=== PATIENT | female | born 1930 | race Caucasian/White ===

== ENCOUNTER 2020-04-20 10:51 | Inpatient (IN) | payer MEDICARE, BC ==
[2020-04-20] MEDS ORDERED: Sodium Chloride 0.9% 10 ML Syringe FLUSH PRN (11:15)
[2020-04-20 11:54] LABS: PTT,PARTIAL THROMBOPLSTIN TIME 25.2 SEC (25.6-32.8)
[2020-04-20 12:01] LABS: CHLORIDE,CL 104 mmol/L (98-107); SODIUM,NA 143 mmol/L (136-145)
[2020-04-20 12:03] LABS: ANION GAP 11.3 mmol/L (10-20)
[2020-04-20] MEDS ORDERED: Sulfamethoxazole/Trimethoprim 800-160 MG Tab PO ONE (12:16)
[2020-04-20] MEDS ORDERED: Pantoprazole 40 MG Vial IVPUSH ONE (12:41)
--- NOTE | 2020-04-20 13:15 | EDM.PDOC ---
ED HPI GENERAL MEDICAL PROBLEM - General Stated Complaint: LOOSE STOOLS/RECTAL BLEEDING Time Seen by Provider: 04/20/20 10:52 Source of Information: Reports: Patient History Limitations: Reports: No Limitations - History of Present Illness INITIAL COMMENTS - FREE TEXT/NARRATIVE: Patient comes emergency department today with complaints of diarrhea loose stools as well as questionable blood in her stools as well. This patient noticed yesterday that she was having stools. They were maroon and reddish color. They continue today. She does not have much for abdominal pain just some pressure in the suprapubic region. No hematuria dysuria or urinary frequency. No chest pain no shortness of breath or difficulty breathing. No weakness dizziness lightheadedness. No palpitations. No syncope. No fever no chills. She does have a family member who colon cancer in the past. She has not had a colonoscopy in the last couple years that she was told she no longer needs one. She does have a history of diverticulosis as well as diverticulitis although this does not feel like her symptoms that she has had with this in the past. No Covid exposure no Covid symptoms. Lower Abdominal Pain Score (Numeric/FACES): 0 - Related Data Allergies Allergy/AdvReac Type Severity Reaction Status Date / Time atorvastatin calcium Allergy Other Verified 05/30/14 11:06 [From Lipitor] celecoxib [From Celebrex] Allergy Other Verified 05/30/14 11:06 carbidopa [From Sinemet] AdvReac Headache Verified 05/30/14 11:06 cephalexin monohydrate AdvReac Nausea and Verified 05/30/14 11:06 [From Keflex] Vomiting codeine AdvReac Nausea and Verified 05/30/14 11:06 Vomiting diltiazem HCl [From Cardizem] AdvReac Nausea and Verified 05/30/14 11:06 Vomiting doxazosin mesylate AdvReac Nausea and Verified 05/30/14 11:06 [From Cardura] Vomiting hydrochlorothiazide AdvReac Headache Verified 05/30/14 11:06 [From Dyazide] isosorbide AdvReac Headache Verified 05/30/14 11:06 levodopa [From Sinemet] AdvReac Headache Verified 05/30/14 11:06 nifedipine [From Procardia] AdvReac Headache Verified 05/30/14 11:06 terazosin HCl [From Hytrin] AdvReac Headache Verified 05/30/14 11:06 triamterene [From Dyazide] AdvReac Headache Verified 05/30/14 11:06 Home Meds: Home Meds Aspirin [Ecotrin] 325 mg PO DAILY 05/13/14 [History] Calcium Carbonate [Calcium] 1 tab PO DAILY 05/13/14 [History] ClonazePAM [KlonoPIN] 1 tab PO BEDTIME 05/13/14 [History] Fish Oil/[place]-3 Fatty Acids [Fish Oil 1,000 MG] 1,000 mg PO DAILY 05/13/14 [History] Furosemide [Lasix] 1 tab PO 0800 05/13/14 [History] Magnesium 250 mg PO DAILY 05/13/14 [History] Multivit,Calc,Mins/Iron/Folic [Thera-M] 1 tab PO DAILY 05/13/14 [History] Nitroglycerin [Nitrostat] 1 tab SL ASDIRECTED PRN 05/13/14 [History] Simvastatin [Zocor] 0.5 tab PO BEDTIME 05/13/14 [History] amLODIPine Besylate [Norvasc] 1 tab PO DAILY 05/13/14 [History] Carboxymethylcellulose Sodium [Refresh Tears] 1 drop EYEBOTH ASDIRECTED PRN 04/20/20 [History] Furosemide [Lasix] 0.5 tab PO 1200 04/20/20 [History] Polyvinyl Alcohol/Povidone/Pf [Refresh Classic Eye Drops] 1 drop EYEBOTH ASDIRECTED PRN 04/20/20 [History] lisinopriL [Lisinopril] 20 mg PO DAILY 04/20/20 [History] ED ROS GENERAL - Review of Systems Review Of Systems: Comprehensive ROS is negative, except as noted in HPI. ED EXAM, GI/ABD - Physical Exam Exam: See Below Text/Narrative:: This is a very happy pleasant interactive elderly female that appears in no acute distress and nontoxic-appearing. Exam Limited By: No Limitations General Appearance: Alert, WD/WN, No Apparent Distress Eyes: Bilateral: EOMI Ears: Normal External Exam Nose: Normal Inspection Throat/Mouth: Normal Inspection Head: Atraumatic, Normocephalic Neck: Normal Inspection, Supple, Non-Tender Respiratory/Chest: No Respiratory Distress, Lungs Clear, Normal Breath Sounds, Chest Non-Tender Cardiovascular: Normal Peripheral Pulses, Regular Rate, Rhythm GI/Abdominal Exam: Normal Bowel Sounds, Soft, Tender (She has some minor tenderness in the suprapubic region without guarding rebound. There is no peritoneal signs. No rigidity to the abdomen. No hernia.) Rectal (Female) Exam: Heme + Stool (She is grossly blood positive with maroon tarry like stools.), Hemorrhoids (There are a couple of small nonthrombosed external hemorrhoids.). No: Tenderness Back Exam: Normal Inspection, Full Range of Motion Extremities: Normal Inspection, Normal Range of Motion, Normal Capillary Refill Neurological: Alert, Oriented, Normal Cognition, No Motor/Sensory Deficits Psychiatric: Normal Affect, Normal Mood Skin Exam: Warm, Dry, Intact, Normal Color #1 Interpretation EKG Date: 04/20/20 Time: 11:43 Rhythm: NSR Rate (Beats/Min): 83 [place]: Normal P-Wave: Present QRS: Normal ST-T: Normal QT: Normal Course - Vital Signs Last Recorded V/S: Last Vital Signs Temp 97.4 F 04/22/20 06:00 Pulse 70 04/22/20 06:00 Resp 17 04/22/20 06:00 BP 110/49 L 04/22/20 07:46 Pulse Ox 95 04/22/20 06:00 - Orders/Labs/Meds Orders: Medication Orders Acetaminophen (Tylenol) 650 mg PO Q4H PRN PRN Reason: Pain Amlodipine Besylate (Norvasc) 2.5 mg PO DAILY [facility] Last Admin: 04/22/20 07:45 Dose: 2.5 mg Documented by: Admin: 04/21/20 08:14 Dose: 2.5 mg Documented by: Admin: 04/20/20 15:13 Dose: 2.5 mg Documented by: [email or web address] Artificial Tears (Genteal Mild To Moderate Ophth Soln) 0 ml EYEBOTH ASDIRECTED PRN PRN Reason: Dry Eyes Ceftriaxone Sodium (Rocephin) 1 gm IVPUSH DAILY [facility] Last Admin: 04/22/20 07:45 Dose: 1 gm Documented by: Admin: 04/21/20 08:12 Dose: 1 gm Documented by: ORLANDO Clonazepam (Klonopin) 1 mg PO BEDTIME [facility] Last Admin: 04/21/20 19:50 Dose: 1 mg Documented by: Admin: 04/20/20 21:15 Dose: 1 mg Documented by: VAMSI Metronidazole 500 mg/ Premix 100 mls @ 100 mls/hr IV Q8H [facility] Last Admin: 04/22/20 06:11 Dose: 100 mls/hr Documented by: Infusion: 04/21/20 23:02 Dose: 100 mls/hr Documented by: Admin: 04/21/20 22:02 Dose: 100 mls/hr Documented by: Infusion: 04/21/20 15:20 Dose: 100 mls/hr Documented by: Admin: 04/21/20 14:20 Dose: 100 mls/hr Documented by: Infusion: 04/21/20 07:09 Dose: 100 mls/hr Documented by: Admin: 04/21/20 06:09 Dose: 100 mls/hr Documented by: Infusion: 04/21/20 00:06 Dose: 100 mls/hr Documented by: Admin: 04/20/20 23:06 Dose: 100 mls/hr Documented by: Infusion: 04/20/20 16:12 Dose: 100 mls/hr Documented by: Admin: 04/20/20 15:12 Dose: 100 mls/hr Documented by: JOVITA Lisinopril (Prinivil) 20 mg PO DAILY [facility] Last Admin: 04/22/20 07:46 Dose: 20 mg Documented by: Admin: 04/21/20 08:14 Dose: 20 mg Documented by: Admin: 04/20/20 15:12 Dose: 20 mg Documented by: JOVITA Nitroglycerin (Nitrostat) 0.4 mg SL ASDIRECTED PRN PRN Reason: Chest Pain Omeprazole (Omeprazole) 20 mg PO BIDAC [facility] Last Admin: 04/22/20 06:11 Dose: 20 mg Documented by: Admin: 04/21/20 16:58 Dose: 20 mg Documented by: Admin: 04/21/20 11:29 Dose: 20 mg Documented by: ORLANDO Potassium Chloride (Klor-Con 10) 20 meq PO BIDMEALS [facility] Last Admin: 04/22/20 07:45 Dose: 20 meq Documented by: Admin: 04/21/20 17:53 Dose: 20 meq Documented by: Admin: 04/21/20 09:31 Dose: 20 meq Documented by: ORLANDO Simvastatin (Zocor) 40 mg PO BEDTIME [facility] Last Admin: 04/21/20 19:50 Dose: 40 mg Documented by: Admin: 04/20/20 21:16 Dose: 40 mg Documented by: VAMSI Sodium Chloride (Saline Flush) 10 ml FLUSH ASDIRECTED PRN PRN Reason: Keep Vein Open Labs: Laboratory Tests 04/20/20 04/20/20 04/20/20 Range/Units 11:05 11:15 11:21 WBC 14.0 H (4.0-10.0) x10^3/uL RBC 5.25 (4.00-5.50) x10^6/uL Hgb 16.0 (12.0-16.0) g/dL Hct 47.7 H (33.0-47.0) % MCV 90.9 (78.0-93.0) fL MCH 30.5 (26.0-32.0) pg MCHC 33.5 (32.0-36.0) g/dL RDW Coeff of [place] 12.5 (10.0-15.0) % Plt Count 244 (130-400) x10^3/uL Neut % (Auto) 72.6 (50.0-80.0) % Lymph % (Auto) 18.7 L (25.0-50.0) % [place] % (Auto) 8.4 (2.0-11.0) % Eos % (Auto) 0.2 (0.0-4.0) % Baso % (Auto) 0.1 L (0.2-1.2) % PT (9.5-12.3) SEC INR (2.0-3.5) APTT (25.6-32.8) SEC Sodium (136-145) mmol/L Potassium (3.5-5.1) mmol/L Chloride (98-107) mmol/L Carbon Dioxide (21-32) mmol/L Anion Gap (10-20) mmol/L BUN (7-18) mg/dL Creatinine (0.55-1.02) mg/dL Est Cr Clr Drug Dosing Estimated GFR (MDRD) Glucose (74-106) mg/dL Lactic Acid (0.4-2.0) mmol/L Calcium (8.5-10.1) mg/dL Corrected Calcium (8.5-10.1) mg/dL Total Bilirubin (0.2-1.0) mg/dL AST (15-37) U/L ALT (14-59) U/L Alkaline Phosphatase (46-116) U/L Troponin I (<=0.056) ng/mL C-Reactive Protein (<=0.9) mg/dL Total Protein (6.4-8.2) g/dL Albumin (3.4-5.0) g/dL Globulin Albumin/Globulin Ratio Amylase (25-115) U/L Lipase (73-393) U/L Urine Color Dark yellow H (YELLOW) Urine Appearance Cloudy H (CLEAR) Urine pH 5.5 (5.0-8.0) Ur Specific [place] 1.025 Urine Protein Negative (NEGATIVE) mg/dL Urine Glucose (UA) Negative (NEGATIVE) mg/dL Urine Ketones Trace H (NEGATIVE) mg/dL Urine Occult Blood Negative (NEGATIVE) Urine Nitrite Negative (NEGATIVE) Urine Bilirubin Negative (NEGATIVE) Urine Urobilinogen 0.2 (0.2) EU/dL Ur Leukocyte Esterase Moderate H (NEGATIVE) Urine RBC 5-10 H (NOT SEEN) /HPF Urine WBC 20-30 H (NOT SEEN) /HPF Ur Squamous Epith Cells Many H (NEGATIVE) /HPF Amorphous Sediment Few Urine Bacteria Few H (NEGATIVE) /HPF Urine Mucus Few H (NEGATIVE) /LPF SARS CoV-2 RNA Rapid SHELBY Negative (NEGATIVE) Blood Type Gel Antibody Screen 04/20/20 04/20/20 04/20/20 Range/Units 11:21 11:21 11:21 WBC (4.0-10.0) x10^3/uL RBC (4.00-5.50) x10^6/uL Hgb (12.0-16.0) g/dL Hct (33.0-47.0) % MCV (78.0-93.0) fL MCH (26.0-32.0) pg MCHC (32.0-36.0) g/dL RDW Coeff of [place] (10.0-15.0) % Plt Count (130-400) x10^3/uL Neut % (Auto) (50.0-80.0) % Lymph % (Auto) (25.0-50.0) % [place] % (Auto) (2.0-11.0) % Eos % (Auto) (0.0-4.0) % Baso % (Auto) (0.2-1.2) % PT 10.1 (9.5-12.3) SEC INR 0.9 L (2.0-3.5) APTT 25.2 L (25.6-32.8) SEC Sodium 143 (136-145) mmol/L Potassium 3.3 L (3.5-5.1) mmol/L Chloride 104 (98-107) mmol/L Carbon Dioxide 31 (21-32) mmol/L Anion Gap 11.3 (10-20) mmol/L BUN 9 (7-18) mg/dL Creatinine 1.0 (0.55-1.02) mg/dL Est Cr Clr Drug Dosing TNP Estimated GFR (MDRD) 52 Glucose 126 H (74-106) mg/dL Lactic Acid (0.4-2.0) mmol/L Calcium 9.5 (8.5-10.1) mg/dL Corrected Calcium 9.66 (8.5-10.1) mg/dL Total Bilirubin 0.7 (0.2-1.0) mg/dL AST 22 (15-37) U/L ALT 26 (14-59) U/L Alkaline Phosphatase 95 (46-116) U/L Troponin I < 0.017 (<=0.056) ng/mL C-Reactive Protein (<=0.9) mg/dL Total Protein 6.9 (6.4-8.2) g/dL Albumin 3.8 (3.4-5.0) g/dL Globulin 3.1 Albumin/Globulin Ratio 1.23 Amylase (25-115) U/L Lipase (73-393) U/L Urine Color (YELLOW) Urine Appearance (CLEAR) Urine pH (5.0-8.0) Ur Specific [place] Urine Protein (NEGATIVE) mg/dL Urine Glucose (UA) (NEGATIVE) mg/dL Urine Ketones (NEGATIVE) mg/dL Urine Occult Blood (NEGATIVE) Urine Nitrite (NEGATIVE) Urine Bilirubin (NEGATIVE) Urine Urobilinogen (0.2) EU/dL Ur Leukocyte Esterase (NEGATIVE) Urine RBC (NOT SEEN) /HPF Urine WBC (NOT SEEN) /HPF Ur Squamous Epith Cells (NEGATIVE) /HPF Amorphous Sediment Urine Bacteria (NEGATIVE) /HPF Urine Mucus (NEGATIVE) /LPF SARS CoV-2 RNA Rapid SHELBY (NEGATIVE) Blood Type A POSITIVE Gel Antibody Screen Negative 04/20/20 04/20/20 Range/Units 11:21 11:21 WBC (4.0-10.0) x10^3/uL RBC (4.00-5.50) x10^6/uL Hgb (12.0-16.0) g/dL Hct (33.0-47.0) % MCV (78.0-93.0) fL MCH (26.0-32.0) pg MCHC (32.0-36.0) g/dL RDW Coeff of [place] (10.0-15.0) % Plt Count (130-400) x10^3/uL Neut % (Auto) (50.0-80.0) % Lymph % (Auto) (25.0-50.0) % [place] % (Auto) (2.0-11.0) % Eos % (Auto) (0.0-4.0) % Baso % (Auto) (0.2-1.2) % PT (9.5-12.3) SEC INR (2.0-3.5) APTT (25.6-32.8) SEC Sodium (136-145) mmol/L Potassium (3.5-5.1) mmol/L Chloride (98-107) mmol/L Carbon Dioxide (21-32) mmol/L Anion Gap (10-20) mmol/L BUN (7-18) mg/dL Creatinine (0.55-1.02) mg/dL Est Cr Clr Drug Dosing Estimated GFR (MDRD) Glucose (74-106) mg/dL Lactic Acid 3.3 H* (0.4-2.0) mmol/L Calcium (8.5-10.1) mg/dL Corrected Calcium (8.5-10.1) mg/dL Total Bilirubin (0.2-1.0) mg/dL AST (15-37) U/L ALT (14-59) U/L Alkaline Phosphatase (46-116) U/L Troponin I (<=0.056) ng/mL C-Reactive Protein 2.3 H (<=0.9) mg/dL Total Protein (6.4-8.2) g/dL Albumin (3.4-5.0) g/dL Globulin Albumin/Globulin Ratio Amylase 27 (25-115) U/L Lipase 74 (73-393) U/L Urine Color (YELLOW) Urine Appearance (CLEAR) Urine pH (5.0-8.0) Ur Specific [place] Urine Protein (NEGATIVE) mg/dL Urine Glucose (UA) (NEGATIVE) mg/dL Urine Ketones (NEGATIVE) mg/dL Urine Occult Blood (NEGATIVE) Urine Nitrite (NEGATIVE) Urine Bilirubin (NEGATIVE) Urine Urobilinogen (0.2) EU/dL Ur Leukocyte Esterase (NEGATIVE) Urine RBC (NOT SEEN) /HPF Urine WBC (NOT SEEN) /HPF Ur Squamous Epith Cells (NEGATIVE) /HPF Amorphous Sediment Urine Bacteria (NEGATIVE) /HPF Urine Mucus (NEGATIVE) /LPF SARS CoV-2 RNA Rapid [place] (NEGATIVE) Blood Type Gel Antibody Screen Meds: Medications Generic Name Dose Route Start Last Admin Trade Name Freq PRN Reason Stop Dose Admin Acetaminophen 650 mg 04/20/20 15:00 Tylenol PO Q4H PRN Pain Amlodipine Besylate 2.5 mg 04/20/20 14:30 04/22/20 07:45 Norvasc PO 2.5 mg DAILY [facility] Administration Artificial Tears 0 ml 04/20/20 14:18 Genteal Mild To Moderate Ophth Soln EYEBOTH ASDIRECTED PRN Dry Eyes Ceftriaxone Sodium 1 gm 04/21/20 08:00 04/22/20 07:45 Rocephin IVPUSH 1 gm DAILY RAIA Administration Clonazepam 1 mg 04/20/20 20:00 04/21/20 19:50 Klonopin PO 1 mg BEDTIME ARIA Administration Metronidazole 500 mg/ Premix 100 mls @ 100 mls/hr 04/20/20 14:30 04/22/20 06:11 IV 100 mls/hr Q8H [facility] Administration Lisinopril 20 mg 04/20/20 14:30 04/22/20 07:46 Prinivil PO 20 mg DAILY [facility] Administration Nitroglycerin 0.4 mg 12/06/20 14:18 Nitrostat SL ASDIRECTED PRN Chest Pain Omeprazole 20 mg 04/21/20 11:00 04/22/20 06:11 Omeprazole PO 20 mg BIDAC ARIA Administration Potassium Chloride 20 meq 04/21/20 08:35 04/22/20 07:45 Klor-Con 10 PO 20 meq BIDMEALS ARIA Administration Simvastatin 40 mg 04/20/20 20:00 04/21/20 19:50 Zocor PO 40 mg BEDTIME [facility] Administration Sodium Chloride 10 ml 04/20/20 11:15 Saline Flush FLUSH ASDIRECTED PRN Keep Vein Open Discontinued Medications Generic Name Dose Route Start Last Admin Trade Name Freq PRN Reason Stop Dose Admin Sodium Chloride 1,000 mls @ 100 mls/hr 04/20/20 14:15 04/21/20 13:43 Normal Saline IV 100 mls/hr ASDIRECTED ARIA Administration Potassium Chloride 20 meq/ 50 mls @ 25 mls/hr 04/20/20 14:23 04/20/20 15:12 Premix IV 04/20/20 16:22 25 mls/hr Q2H [facility] Administration Magnesium Sulfate 2 gm in 50 mls @ 25 mls/hr 04/21/20 16:23 04/21/20 16:35 Magnesium Sulfate In Water Premix IV 04/21/20 18:22 25 mls/hr ONETIME ONE Administration Iopamidol 100 ml 04/20/20 18:46 04/20/20 18:50 Isovue-300 (61%) IVPUSH 04/20/20 18:47 100 ml ONETIME ONE Administration Non-Formulary Medication 1 drop 04/20/20 14:18 Polyvinyl Alcohol/Povidone/Pf [Refresh Classic Eye Drops] EYEBOTH ASDIRECTED PRN Dry Eyes Pantoprazole Sodium 80 mg 04/20/20 12:41 04/20/20 13:00 Protonix Iv IVPUSH 04/20/20 12:42 80 mg ONETIME ONE Administration Pantoprazole Sodium 40 mg 04/21/20 08:00 04/21/20 08:12 Protonix Iv IVPUSH 40 mg Q12H [facility] Administration Trimethoprim/Sulfamethoxazole 1 tab 04/20/20 12:16 04/20/20 12:39 Septra Ds PO 04/20/20 12:17 1 tab ONETIME ONE Administration - Re-Assessments/Exams Free Text/Narrative Re-Assessment/Exam: An IV was established labs were drawn. EKG without any ST elevation or depression when reviewed extemporaneously by myself. The patient's rectal exam is very positive for maroon-colored stool. Patient was given 80 mg of Protonix IV push. Covid screen is negative. WBCs 14.0, hemoglobin 16.0, platelets 244. PT 10.1, INR 0.9, PTT 25.2. Potassium 3.3 sodium normal creatinine 1.0 with a BUN of 9. Lactic acid 3.3. Liver enzymes are normal. Troponin less than 0.017. C-reactive protein 2.3. Urinalysis trace ketones, moderate leukocyte esterase 5-10 RBCs with 20-30 WBCs. Urine culture pending. Patient was given a dose of Bactrim in the emergency department. Although this patient's hemoglobin is quite stable and she is hemodynamically stable. With her advanced age and the rather predominant amount of blood in her stool I think that care management and close following an inpatient treatment is advised at this time. I called and spoke with Ugo Kebede the [employer] control and recovery combat rescue for the hospital. HPI ER COURSE findings and concerns were relayed to him. His questions were answered and he accepted the patient in admission at this time for treatment here in [place]. I discussed the plan of care with the patient. She is comfortable with this plan and her questions are answered. Departure - Departure Time of Disposition: 12:30 Disposition: Admitted As Inpatient 66 Clinical Impression: Lower GI bleed UTI (urinary tract infection) Qualifiers: Urinary tract infection type: site unspecified Hematuria presence: without hematuria Qualified Code(s): N39.0 - Urinary tract infection, site not specified - Discharge Information
[2020-04-20] MEDS ORDERED: Non-Formulary Medication 1 Each (Polyvinyl Alcohol/Povidone/Pf [Refresh Classic Eye Drops] EYEBOTH PRN (14:18)
[2020-04-20] MEDS ORDERED: Nitroglycerin 0.4 MG Tab.SL SL PRN (14:18)
[2020-04-20] MEDS ORDERED: Hypromellose 0.3% Ophth Soln 15 ML Bottle EYEBOTH PRN (14:18)
[2020-04-20] MEDS ORDERED: Potassium Chloride Riders 20 MEQ in Premix Bag 1 BAG IV SCH (14:23)
[2020-04-20] MEDS ORDERED: Acetaminophen 325 MG Tab PO PRN (15:00)
[2020-04-20] MEDS: Sodium Chloride 0.9% 1,000 ML IV SCH (15:12)
[2020-04-20] MEDS: metroNIDAZOLE/Normal Saline 500 MG in Premix Bag 1 BAG IV SCH ×2 (15:12→23:06)
[2020-04-20] MEDS: Lisinopril 20 MG Tab PO SCH (15:12)
[2020-04-20] MEDS: amLODIPine 2.5 MG Tab PO SCH (15:13)
[2020-04-20] MEDS ORDERED: Iopamidol 612 MG/ML 100 ML Bottle IVPUSH ONE (18:46)
--- NOTE | 2020-04-20 19:56 | HP ---
CHIEF COMPLAINT: 1. Bloody stools. 2. Abdominal pain. HISTORY OF PRESENT ILLNESS: An 89-year-old female patient presented to the emergency room earlier this afternoon complaining of bloody stools and lower abdominal pain. The patient states she had normal bowel movements yesterday morning. However, throughout the day she started developing right lower quadrant abdominal pain and lower pelvic pain. She subsequently had a loose stool last evening, which she states appeared bloody. The patient does have a history of hemorrhoids. The patient states this morning she developed significant right lower quadrant pain and had another bloody stool. The patient states that she did eat some popcorn Andrea night knowing she is not supposed to eat those types of foods. The patient states she has a history of diverticulitis. The patient denies any falls. She states she feels somewhat weak. The patient denies any dizziness or lightheadedness. Patient states she has a headache probably from not taking her blood pressure medications this morning. The patient has not felt nauseated. No vomiting. The patient denies any chest pain or palpitations. Patient denies any shortness of breath or cough. PAST MEDICAL HISTORY: 1. Essential hypertension. 2. Hyperlipidemia. 3. Generalized anxiety disorder. 4. History of diverticulitis. PAST SURGICAL HISTORY: Unknown. FAMILY HISTORY: Noncontributory. SOCIAL HISTORY: The patient does not smoke cigarettes. Patient does not use alcohol. ALLERGIES: 1. Atorvastatin. 2. Celebrex. 3. Sinemet. 4. Keflex. 5. Codeine. 6. Cardizem. 7. Cardura. 8. Hydrochlorothiazide. 9. Imdur. 10.Procardia. 11.Hytrin. MEDICATION: 1. Lisinopril 20 mg p.o. daily. 2. Refresh classic eye drops 1 drop to both eyes daily as needed. 3. Refresh Tears 1 drop to both eyes daily as needed. 4. Zocor 1/2 tablet p.o. daily. 5. Nitrostat 1 tablets sublingual every 5 minutes as needed. 6. [place]-3 fish oil 1000 mg 1 capsule p.o. daily. 7. Multivitamin 1 tablet p.o. daily. 8. Magnesium 250 mg 1 tablet p.o. daily. 9. Lasix 1 tablet p.o. daily at 8 a.m. 10.Lasix 1/2 tablet daily at noon. 11.Clonazepam 1 tablet p.o. daily at bedtime. 12.Calcium carbonate 1 tablet p.o. daily. 13.Aspirin 325 mg 1 tablet p.o. daily. 14.Norvasc 1 tablet p.o. daily. LABORATORY STUDIES: 1. CBC: White blood cell count 14.0, hemoglobin 16.0, hematocrit 47.7, platelets 244,000. 2. PT 10.1, INR 0.9, PTT 25.2. 3. CMP: Sodium 143, potassium 3.3, chloride 104, CO2 of 31, anion gap 11.3, BUN 9, creatinine 1.0, GFR 52. Glucose 126, calcium 9.5, bilirubin 0.7, AST 22, ALT 26, alkaline phosphatase 95, protein 6.9, albumin 3.8. 4. Lactic acid 3.1. 5. Troponin less than 0.017. 6. C-reactive protein 2.3. 7. Amylase 27. 8. Lipase 74. 9. COVID-19 test negative. 10.UA: Color is dark yellow. Appearance is cloudy. Positive for leukocytes and wbc's. Also positive for rbc's. IMAGING STUDIES: Pending. REVIEW OF SYSTEMS: Constitutional: Negative. Skin: Negative. Respiratory: Negative. Cardiovascular: Negative. Abdomen: Pain in the right lower quadrant, bloody stools, diarrhea. Extremities: Negative. Neurological: Negative. PHYSICAL EXAMINATION: Vital Sign: Blood pressure 144/95, temperature 98.7, pulse 75, respiratory rate 14, oxygen saturation 96% on room air. Height is 4 feet 11 inches. Weight is 98.8 pounds. General: Patient is cooperative. The patient does not appear to be in any acute distress. Skin: Intact, warm, and dry. Respiratory: Lungs are clear to auscultation bilaterally. Cardiovascular: Regular rate and rhythm, no murmur. Abdomen: Exquisitely tender in the right lower quadrant with palpation, bowel sounds are hyperactive in the right lower quadrant and right upper quadrant. Soft. Neurological: The patient is alert. Patient is oriented to person, place, and time. Extremities: No edema. ASSESSMENT: 1. Acute diverticulitis. 2. Gastrointestinal bleed. 3. Urinary tract infection with hematuria. 4. Leukocytosis. 5. Hypokalemia. 6. Essential hypertension. 7. Mixed hyperlipidemia. PLAN: An 89-year-old female patient with a past medical history of hypertension and mixed hyperlipidemia, is admitted to the acute care floor at [facility] for the above diagnosis. The patient will be started on IV fluids. The patient will only be on clear liquids to rest the bowel. We will start the patient on Rocephin and Flagyl IV. We will hold aspirin. We will start the patient on Protonix 40 mg IV daily. We will hold off on p.o. med other than antihypertensive to help rest the bowel. Awaiting a CT scan of the abdomen/pelvis. We will recheck laboratory work tomorrow morning. At this time, the patient appears to be hemodynamically stable. The patient wishes to be a full code. The patient does agree to transfer to a higher level of care should the need arise. We will hold off on DVT prophylaxis due to GI bleed. TB: 04/20/2020 17:20:31 MODL: 04/20/2020 19:48:55 /[id number]
[2020-04-20] MEDS: ClonazePAM 0.5 MG Tab PO SCH (21:15)
[2020-04-20] MEDS: Simvastatin 40 MG Tab PO SCH (21:16)
[2020-04-21] MEDS: Sodium Chloride 0.9% 1,000 ML IV SCH ×2 (01:11→13:43)
[2020-04-21] MEDS: metroNIDAZOLE/Normal Saline 500 MG in Premix Bag 1 BAG IV SCH ×3 (06:09→22:02)
[2020-04-21 07:20] LABS: CHLORIDE,CL 110 mmol/L (98-107); SODIUM,NA 144 mmol/L (136-145)
[2020-04-21 07:22] LABS: ANION GAP 11.1 mmol/L (10-20)
[2020-04-21] MEDS ORDERED: Pantoprazole 40 MG Vial IVPUSH SCH (08:00)
[2020-04-21] MEDS: cefTRIAXone 1 GM Vial IVPUSH SCH (08:12)
[2020-04-21] MEDS: amLODIPine 2.5 MG Tab PO SCH (08:14)
[2020-04-21] MEDS: Lisinopril 20 MG Tab PO SCH (08:14)
[2020-04-21] MEDS: Potassium Chloride 10 MEQ Tab.ER PO SCH ×2 (09:31→17:53)
[2020-04-21] MEDS: Omeprazole 20 MG Cap.CR PO SCH ×2 (11:29→16:58)
--- NOTE | 2020-04-21 14:56 | CT ---
[id number] CT/CT Abdomen Pelvis W IV EXAM: CT Abdomen Pelvis W IV CLINICAL DATA: RLQ PAIN, HX OF DIVERTICULITIS COMPARISON STUDY: None. FINDINGS: 5 mm solid noncalcified subpleural right middle lobe nodule (series 2 image 3). Scarring in both lung bases as well. Liver, spleen, gallbladder, pancreas, adrenal glands, and kidneys are unremarkable. Abnormal wall thickening throughout the transverse, descending, and sigmoid segments of the colon. Findings are consistent with colitis. Superimposed colonic diverticulosis. No evidence of acute diverticulitis. No small bowel obstruction or inflammation. Urinary bladder is distended but otherwise unremarkable. Extensive abdominal aorta atherosclerosis. Fusiform dilation of its infrarenal segment measuring up to 25 mm. Spondylosis. No acute fracture or compression deformity. IMPRESSION: Changes of colitis in the transverse, descending, and sigmoid segments. Other findings are described above. Sal Moore MD 04/21/20 [id number] Thank you for allowing us to participate in the care of your patient.
[2020-04-21] MEDS ORDERED: Magnesium Sulfate/Water 2 GM/50 ML BAG IV ONE (16:23)
--- NOTE | 2020-04-21 17:08 | PN ---
Progress Note for CHIDI COX Date: 04/21/2020 Room #: VM.201 SUBJECTIVE: This is an 89-year-old. Hospital day #2 for diarrhea, abdominal cramping, and bloody stools with CT concerning for diverticulitis, which she has had before, and she did have some popcorn on Tuesday night. She stated she was just feeling so weak, but no fever. She has not had any vomiting. She is tolerating a liquid diet. Her pain is nearly gone, still has some discomfort in the right lower quadrant. When I received her official CT report, it was positive for colitis. No evidence of diverticulitis, but does have diverticulosis. Her urinary bladder was distended and she did mention she had some discomfort in the bladder, but it improved with urination. Otherwise, no burning. No new back pain. She is not having any cough. No shortness of breath. OBJECTIVE: Vital Signs: Her temperature is 98.4, pulse 71, blood pressure 116/61, respiratory rate 16, O2 of 92 on room air. General: She is in no acute distress. Heart: Regular rate and rhythm with murmur. Lungs: Sounds are clear to auscultation bilaterally without crackles or wheezes. Abdomen: Has positive bowel sounds. Soft, nondistended, but some tenderness in the right lower quadrant. No rebound. No guarding. Bladder is nondistended on external exam. Mental Status: She is alert. She is orientated x3. Her mood is appropriate. Extremities: Legs show no edema. LABORATORY DATA: Lab work does show her white count to have normalized down to 9.8; hemoglobin 12.4, dropped from 16; platelets 187. INR 0.9 yesterday. Sodium 144, potassium 3.1, chloride 110, bicarb 26, BUN 7, creatinine 0.7, glucose 89, calcium 8, magnesium 1.7. COVID negative. ASSESSMENT AND PLAN: 1. Bloody diarrhea secondary to colitis. She has had no recent antibiotics, had Bactrim prescribed 5 months ago for urinary tract infection. No stool studies have been sent. We will send a stool culture. We will continue the IV Rocephin and Flagyl. She appears to be improving with this regimen. Procalcitonin pending. 2. Hypokalemia and hypomagnesemia. We will replace IV magnesium due to diarrhea and oral potassium. 3. Gastrointestinal bleeding lower with bright red blood per rectum. She states now it is more so noted with her wiping. She had a rectal exam completed on admit and they told her just hemorrhoids were appreciated. 4. Essential hypertension, controlled. 5. History of coronary artery disease, stable without any chest pain. 6. Peripheral vascular disease. 7. Concern for urinary tract infection. Her culture is showing mixed jimbo. Should be covered by her current antibiotics for colitis. The patient will continue IV antibiotics. We will stop the IV fluids and IV Protonix, and place her on oral Prilosec. She was actually hopeful to go home today, but I recommended we continue antibiotics for 1 more day and advance diet as tolerated. Replace her electrolytes. Get her up and seen by PT. Repeat lab work tomorrow. I will also get a bladder scan. On her heart monitor, she has had some bradycardia with rates down in the 45 range consistently, so I will continue to monitor heart rate overnight. MKA: 04/21/2020 16:30:07 MODL: 04/21/2020 16:58:52 /[id number]
[2020-04-21] MEDS: ClonazePAM 0.5 MG Tab PO SCH (19:50)
[2020-04-21] MEDS: Simvastatin 40 MG Tab PO SCH (19:50)
[2020-04-22] MEDS: Omeprazole 20 MG Cap.CR PO SCH (06:11)
[2020-04-22] MEDS: metroNIDAZOLE/Normal Saline 500 MG in Premix Bag 1 BAG IV SCH (06:11)
[2020-04-22 06:20] VITALS: BP 110/49; PULSE 70
[2020-04-22] MEDS: cefTRIAXone 1 GM Vial IVPUSH SCH (07:45)
[2020-04-22] MEDS: Potassium Chloride 10 MEQ Tab.ER PO SCH (07:45)
[2020-04-22] MEDS: amLODIPine 2.5 MG Tab PO SCH (07:45)
[2020-04-22] MEDS: Lisinopril 20 MG Tab PO SCH (07:46)
[2020-04-22 08:00] LABS: CHLORIDE,CL 111 mmol/L (98-107); SODIUM,NA 143 mmol/L (136-145)
[2020-04-22 08:04] LABS: ANION GAP 10.6 mmol/L (10-20)
--- NOTE | 2020-04-22 18:50 | DISCH ---
PRIMARY DISCHARGE DIAGNOSES: 1. Colitis with no history of inflammatory bowel disease. Stool culture pending. 2. Hypokalemia due to diarrhea, improving with oral and intravenous replacement. 3. Bloody diarrhea secondary to colitis, resolved. Stools were nearly back to normal brown on discharge. 4. Acute lower gastrointestinal bleed with bright red blood per rectum. This has improved. She is just having a little bit of blood like when she wiped her stools. Her hemoglobin remained stable over the past 24 hours and was 12.3 on discharge. 5. Essential hypertension, controlled. 6. History of coronary artery disease. 7. Peripheral vascular disease. 8. Concern for urinary tract infection, but culture negative. REASON FOR ADMISSION: On the date of admission, this 89-year-old female was having abdominal cramping, bloody stools, and weakness at home. She had a history of diverticulitis. She had eaten some popcorn, so came to the ER, had an elevated white count, and was admitted. HOSPITAL COURSE: The patient was placed on IV Rocephin and IV Flagyl. She was on a clear liquid diet, which she was tolerating, and gradually her diarrhea improved. She was actually feeling much better on her 2nd hospital day, but had not yet had solid foods and was still on IVs. Therefore, she was switched over to oral potassium. Her diet was advanced. She still had a little bit of abdominal discomfort in the right lower quadrant at this point, so she was continued on IV antibiotics for 1 more day and then luckily she felt much better even the next day and was stable for discharge home. Procalcitonin positive. C. diff came back negative for toxin after the patient was discharged. DISCHARGE PLANS AND INSTRUCTIONS: She will follow up with Dr. Wong in the clinic in 1 to 2 weeks' time. She will be on Flagyl p.o. 3 times a day for another 5 days. She will be on potassium 20 mEq daily for another 7 days with a repeat potassium and mag in the clinic. She will have bananas, rice, applesauce, and toast type diet, and ease back into regular eating and return to the hospital if severe bloody stools or cramping abdominal pain again. PHYSICAL EXAMINATION: Discharge Vitals: Include a temperature 97.4, pulse 70, blood pressure 110/49, respiratory rate 17, O2 of 95% on room air. General: She is in no acute distress. Heart: A regular rate and rhythm. Lungs: Sounds are clear to auscultation bilaterally without crackles or wheezes. Abdomen: Has positive bowel sounds. Soft, nondistended, nontender. Extremities: Warm and dry. No edema. Mental Status: She is alert. She is oriented x3. LABORATORY DATA: Her discharging white count normal. Discharging potassium up to 3.6, discharging magnesium 2.1, calcium 8.0. MKA: 04/22/2020 16:47:33 MODL: 04/22/2020 18:47:12 /[id number]
== END 2020-04-22 10:30 | disposition home or self-care (01) | DRG 392 ==
LOC: VM.ED 10:51 → VM.MS 12:57
PROVIDERS: ADMIT Nurse Practitioner Family; ATTEND Internal Medicine
DX: K92.1 Melena (principal); N39.0 Urinary tract infection, site not specified; K52.9 Noninfective gastroenteritis and colitis, unspecified; K92.2 Gastrointestinal hemorrhage, unspecified; E87.6 Hypokalemia; I10 Essential (primary) hypertension; I25.10 Atherosclerotic heart disease of native coronary artery without angina pectoris; I73.9 Peripheral vascular disease, unspecified; F41.1 Generalized anxiety disorder; K57.90 Diverticulosis of intestine, part unspecified, without perforation or abscess without bleeding; Z88.8 Allergy status to other drugs, medicaments and biological substances; Z88.1 Allergy status to other antibiotic agents; Z88.5 Allergy status to narcotic agent; Z79.82 Long term (current) use of aspirin; Z79.899 Other long term (current) drug therapy; Z20.828 Contact with and (suspected) exposure to other viral communicable diseases; E83.42 Hypomagnesemia
CPT/HCPCS: 36415; 74177; 80048; 80053; 81001; 82150; 83605; 83630; 83690; 83735; 84145; 84484; 85025; 85610; 85730; 86140; 86850; 86900; 86901; 87045; 87046; 87086; 87324; 87493; 93005; 97161-GP; 97530-GP; 99284; A9270-GY; C9113; G0328; J0696; J3475; J3480; J3490; J7030; Q9967; U0002